=== PATIENT | female | born 1995 | race Caucasian/White ===

== ENCOUNTER 2016-03-03 23:14 | Emergency (ER) | payer BC, OTHER ==
[2016-03-03 23:19] VITALS: BP 107/74; PULSE 87; TEMP 98.1; BMI 22.6
[2016-03-04] MEDS ORDERED: ONDANSETRON 4 MG/2 ML VIAL ONE (00:05)
[2016-03-04 00:13] LABS: BASOPHIL 0.6 % (0-2.0); EOSINOPHIL 2.9 % (0-4.5); MCH 28.9 pg (25.7-33.7); MCHC 33.1 g/dl (32.0-36.0); MEAN CELL VOLUME 87.4 fl (80-96); NEUTROPHILS 54.2 % (42.8-82.8); PLATELET COUNT 253 K/MM3 (134-434); RDW 12.6 % (11.6-15.6); WHITE BLOOD COUNT 9.8 K/mm3 (4.0-10.0)
--- NOTE | 2016-03-04 00:15 | PDOC ---
History of Present Illness - General Chief Complaint: Nausea/Vomiting Stated Complaint: VOMITING/SHAKING Time Seen by Provider: 03/03/16 23:24 History Source: Patient Exam Limitations: No Limitations - History of Present Illness Initial Comments: 03/04/16 00:15 Patient is a 20-year-old female with h/o heroine use c/o feeling shaky, nausea and vomiting that started about 3 hours [employer]. She denies abd pain, no sick contact, no food contact, fever, chills, diarrhea. Sniffed heroine about 1 hour [employer]. PMD: Valintine [facility] Med Prac PMHX; neg PSOCHX: (+) heroine use, neg cig, neg drug PFamHX: noncontributory ALL: NKDA GENERAL/CONSTITUTIONAL: [No fever or chills. No weakness. No weight change.] HEAD, EYES, EARS, NOSE AND THROAT: [No change in vision. No ear pain or discharge. No sore throat.] CARDIOVASCULAR: [No chest pain or shortness of breath.] RESPIRATORY: [No cough, wheezing, or hemoptysis.] GASTROINTESTINAL: (+) nausea, (+) vomiting, diarrhea (-) constipation. No rectal bleeding.] GENITOURINARY: [No dysuria, frequency, or change in urination.] MUSCULOSKELETAL: [No joint or muscle swelling or pain. No neck or back pain.] SKIN AND BREASTS: [No rash or easy bruising.] NEUROLOGIC: [No headache, vertigo, loss of consciousness, or loss of sensation.] PSYCHIATRIC: [No depression or anxiety.] ENDOCRINE: [No increased thirst. No abnormal weight change.] HEMATOLOGIC/LYMPHATIC: [No anemia, easy bleeding, or history of blood clots.] ALLERGIC/IMMUNOLOGIC: [No hives or skin allergy. No latex allergy.] GENERAL: [The patient is awake, alert, and fully oriented, in no acute distress. ] HEAD: [Normal with no signs of trauma.] EYES: [Pupils equal, round and reactive to light, extraocular movements intact, sclera anicteric, conjunctiva clear.] ENT: [Ears normal, nares patent, oropharynx clear without exudates. Moist mucous membranes.] NECK: [Normal range of motion, supple without lymphadenopathy, JVD, or masses.] LUNGS: [Breath sounds equal, clear to auscultation bilaterally. No wheezes, and no crackles.] HEART: [Regular rate and rhythm, normal S1 and S2 without murmur, rub.] ABDOMEN: [Soft, nontender, normoactive bowel sounds. No guarding, no rebound. No masses.] EXTREMITIES: [Normal range of motion, no edema. No clubbing or cyanosis. No cords, erythema, or tenderness.] NEUROLOGICAL: [Cranial nerves II through XII grossly intact. Normal speech, normal gait.] PSYCH: [Normal mood, normal affect.] SKIN: [Warm, Dry, normal turgor, no rashes or lesions noted.] Past History - Past Medical History Allergies/Adverse Reactions: Allergies Allergy/AdvReac Type Severity Reaction Status Date / Time No Known Allergies Allergy Verified 03/03/16 23:18 Home Medications: Ambulatory Orders NK [No Known Home Medication] 06/13/14 Anemia: No Asthma: No Cancer: No Cardiac Disorders: No CVA: No COPD: No CHF: No Dementia: No Diabetes: No GI Disorders: No Disorders: Yes (CHLAMYDIA) HTN: No Hypercholesterolemia: No Liver Disease: No Suicide Attempt (Hx): No Seizures: No Thyroid Disease: No Lung CA: No - Reproductive History (#): 0 - Psycho/Social/Smoking Cessation Hx Anxiety: No Suicidal Ideation: No Smoking History: Never smoked Hx Alcohol Use: No Drug/Substance Use Hx: Yes Substance Use Type: Heroin Hx Substance Use Treatment: No *Physical Exam - Vital Signs Last Vital Signs Temp Pulse Resp BP Pulse Ox 98.1 F 87 18 107/74 99 03/03/16 23:16 03/03/16 23:16 03/03/16 23:16 03/03/16 23:16 03/03/16 23:16 ED Treatment Course - LABORATORY CBC & Chemistry Diagram: 03/04/16 00:05 03/04/16 00:05 Medical Decision Making - Medical Decision Making 03/04/16 01:17 Patient is a 20-year-old female with h/o heroine use c/o feeling shaky, nausea and vomiting that started about 3 hours [employer]. No abnormal findings on labs Patient is tolerating by mouth 03/04/16 02:42 I discussed the physical exam findings, ancillary test results and final diagnoses with the patient. I answered all of the patient's questions. The patient was satisfied with the care received and felt comfortable with the discharge plan and treatment plan. The Patient agrees to follow up with the primary care physician within 24-72 hours. *DC/Admit/Observation/Transfer Diagnosis at time of Disposition: Nausea and vomiting Qualifiers: Vomiting Intractability: unspecified - Discharge Dispostion Disposition: HOME Condition at time of disposition: Stable - Patient Instructions Printed Discharge Instructions: DI for Vomiting -- Adult Additional Instructions: Your Discharge Instructions: You must call primary care physician within 24 hours to arrange follow-up. Return to the Emergency Department with any new, persistent or worsening symptoms, for fever, chills, SOB, dizziness or any other concerning changes that may occur.
[2016-03-04 00:39] LABS: ALBUMIN 4.3 g/dl (3.4-5.0); ANION GAP 9 (8-16); BILIRUBIN,TOTAL 0.4 mg/dL (0.2-1.0); CO2 31 mmol/L (21-32); CREATININE 0.7 mg/dL (0.55-1.02); GLUCOSE,RANDOM 109 mg/dL (74-106); SGOT/AST 11 U/L (15-37); SGPT/ALT 15 U/L (12-78); TOT PROT 7.5 g/dl (6.4-8.2)
[2016-03-04 00:40] LABS: ALK PHOS 67 U/L (45-117)
[2016-03-04 01:14] LABS: URINE APPEARANCE SLCLOUDY; URINE BILIRUBIN NEGATIVE (NEGATIVE); URINE BLOOD NEGATIVE (NEGATIVE); URINE COLOR DKYELLOW; URINE GLUCOSE (UA) NEGATIVE (NEGATIVE); URINE KETONE TRACE (NEGATIVE); URINE NITRITE NEGATIVE (NEGATIVE); URINE PROTEIN NEGATIVE (NEGATIVE); URINE UROBILINOGEN NEGATIVE E.U./dl (0.2-1.0)
[2016-03-04 01:19] LABS: URINE LEUK ESTERASE 2+ (NEGATIVE)
== END 2016-03-04 02:48 | disposition home or self-care (01) ==
LOC: JER 23:14
DX: R11.2 Nausea with vomiting, unspecified (principal)
CPT/HCPCS: 36415; 80053; 81003; 81015; 84703; 85025; 87804; 99282-25

== ENCOUNTER 2017-03-26 21:29 | Emergency (ER) | payer OTHER ==
[2017-03-26 22:17] VITALS: BP 119/82; BMI 22.4
--- NOTE | 2017-03-26 23:27 | PDOC ---
History of Present Illness - General Chief Complaint: Cold Symptoms Stated Complaint: FEVER Time Seen by Provider: 03/26/17 23:24 History Source: Patient - History of Present Illness Initial Comments: 03/27/17 01:29 21 year old female with right flank pain and fever since this morning. denies urinary symptoms. patient reports pain worse to rh flank area with deep breaths. denies N, VD, abdominal pain , urinary symptoms. denies URI symptoms Past History - Past Medical History Allergies/Adverse Reactions: Allergies Allergy/AdvReac Type Severity Reaction Status Date / Time No Known Allergies Allergy Verified 03/26/17 22:05 Home Medications: Ambulatory Orders Sulfamethoxazole/Trimethoprim [Bactrim Ds Tablet] 1 each PO BID #14 tablet 03/27 Anemia: No Asthma: No Cancer: No Cardiac Disorders: No CVA: No COPD: No CHF: No Dementia: No Diabetes: No GI Disorders: No Disorders: Yes (CHLAMYDIA) HTN: No Hypercholesterolemia: No Liver Disease: No Seizures: No Thyroid Disease: No Lung CA: No - Reproductive History (#): 0 - Suicide/Smoking/Psychosocial Hx Smoking History: Never smoked Have you smoked in the past 12 months: No Information on smoking cessation initiated: No Hx Alcohol Use: No Drug/Substance Use Hx: Yes (Heroine) Substance Use Type: Cocaine, Heroin Hx Substance Use Treatment: No Review of Systems - Review of Systems Able to Perform ROS?: Yes Is the patient limited Setswana proficient: No *Physical Exam - Vital Signs Last Vital Signs Temp Pulse Resp BP Pulse Ox 102.9 F H 122 H 20 119/82 99 03/26/17 22:06 03/26/17 22:06 03/26/17 22:06 03/26/17 22:06 03/26/17 22:06 - Physical Exam General Appearance: Yes: Appropriately Dressed Gastrointestinal/Abdominal: positive: Normal Bowel Sounds, Soft. negative: Tender, Flat, Organomegaly, Pulsatile Mass, Increased Bowel Sounds, Decreased BS , Protuberent, Distended, Guarding, Rebound, Tenderness, Hernia, Mass, Hepatomegaly, Spleenomegaly, Other Musculoskeletal: positive: CVA Tenderness, CVA Tenderness (R). negative: CVA Tenderness (L) Extremity: positive: Normal Inspection, Normal Range of Motion Integumentary: positive: Normal Color, Dry *DC/Admit/Observation/Transfer Diagnosis at time of Disposition: Pyelonephritis - Discharge Dispostion Disposition: HOME - Prescriptions Prescriptions: Sulfamethoxazole/Trimethoprim [Bactrim Ds Tablet] 1 each PO BID #14 tablet - Referrals Referrals: Yvette Ponce MD [Primary Care Provider] - Call tomorrow - Patient Instructions Printed Discharge Instructions: DI for Kidney Infection Additional Instructions: drink plenty of fluids take bactrim as ordered. follow up with your doctor as soon as possible return to the ER if symptoms worsen. - Post Discharge Activity Forms/Work/School Notes: Parent(s) Back to Work Note
[2017-03-26] MEDS ORDERED: ACETAMINOPHEN 325 MG TABLET (FP) PO ONE (23:34)
[2017-03-27] MEDS ORDERED: IBUPROFEN 600 MG TABLET (FP) PO ONE ×2 (00:12→00:53)
[2017-03-27 00:23] LABS: URINE APPEARANCE CLOUDY; URINE BILIRUBIN NEGATIVE (NEGATIVE); URINE BLOOD 2+ (NEGATIVE); URINE COLOR YELLOW; URINE GLUCOSE (UA) NEGATIVE (NEGATIVE); URINE KETONE NEGATIVE (NEGATIVE); URINE NITRITE POSITIVE (NEGATIVE); URINE PROTEIN NEGATIVE (NEGATIVE); URINE UROBILINOGEN NEGATIVE mg/dL (0.2-1.0)
[2017-03-27 00:25] LABS: HCG,QUALITATIVE URINE NEGATIVE
[2017-03-27 00:32] LABS: URINE LEUK ESTERASE 1+ (NEGATIVE)
[2017-03-27 00:36] LABS: EPI CELLS MANY /HPF (FEW); URINE BACTERIA RARE /hpf (NONE SEEN); URINE HYALINE CAST 3 /lpf; URINE MUCUS RARE
--- NOTE | 2017-03-27 01:05 | PDOC ---
*Physical Exam - Vital Signs Last Vital Signs Temp Pulse Resp BP Pulse Ox 102.9 F H 122 H 20 119/82 99 03/26/17 22:06 03/26/17 22:06 03/26/17 22:06 03/26/17 22:06 03/26/17 22:06 ED Treatment Course - ADDITIONAL ORDERS Additional order review: Laboratory Results 03/27/17 00:16 Urine Color Yellow Urine Appearance Cloudy Urine pH 7.0 D Ur Specific [place] 1.009 Urine Protein Negative Urine Glucose (UA) Negative Urine Ketones Negative Urine Blood 2+ H Urine Nitrite Positive Urine Bilirubin Negative Urine Urobilinogen Negative Ur Leukocyte Esterase 1+ H Urine WBC (Auto) 17 Urine RBC (Auto) 24 Ur Epithelial Cells Many Urine Bacteria Rare Hyaline Casts 3 Urine Mucus Rare Urine HCG, Qual Negative 03/26/17 23:58 Influenza Types A,B Antigen (CADE) - Final Nasopharyngeal Swab - Final - Medications Given in the ED: ED Medications Discontinued Medications Generic Name Dose Route Start Last Admin Trade Name Freq PRN Reason Stop Dose Admin Acetaminophen 650 mg 03/26/17 23:34 03/27/17 00:59 Tylenol - PO 03/26/17 23:35 Not Given ONCE ONE Ibuprofen 600 mg 03/27/17 00:12 03/27/17 00:59 Motrin - PO 03/27/17 00:13 600 mg ONCE ONE Administration Medical Decision Making - Medical Decision Making 03/27/17 01:05 agree with care from NEVAEH Sterling *DC/Admit/Observation/Transfer Diagnosis at time of Disposition: Pyelonephritis - Discharge Dispostion Disposition: HOME - Prescriptions Prescriptions: Sulfamethoxazole/Trimethoprim [Bactrim Ds Tablet] 1 each PO BID #14 tablet - Referrals Referrals: Yvette Ponce MD [Primary Care Provider] - Call tomorrow - Patient Instructions Printed Discharge Instructions: DI for Kidney Infection Additional Instructions: drink plenty of fluids take bactrim as ordered. follow up with your doctor as soon as possible return to the ER if symptoms worsen. - Post Discharge Activity Forms/Work/School Notes: Parent(s) Back to Work Note
[2017-03-27] MEDS ORDERED: cefTRIAXone SODIUM 1 GM VIAL ONE (02:03)
[2017-03-27 02:40] VITALS: PULSE 91; TEMP 98.2
== END 2017-03-27 02:50 | disposition home or self-care (01) ==
LOC: JERFT 21:29 → JER 21:29
DX: N12 Tubulo-interstitial nephritis, not specified as acute or chronic (principal)
CPT/HCPCS: 71046-TC-FY; 81003; 81015; 84703; 87804; 99282-25

== ENCOUNTER 2021-02-24 03:12 | Emergency (ER) | payer OTHER ==
[2021-02-24] MEDS ORDERED: ACETAMINOPHEN 1000 MG/100 ML BAG IVPB ONE (04:06)
[2021-02-24 04:07] VITALS: BMI 28.3
[2021-02-24] MEDS ORDERED: ACETAMINOPHEN INJECTION 100 ML IVPB ONE (04:12)
[2021-02-24 04:17] LABS: BASO % 0.6 % (0-2.0); EOS % 3.9 % (0-4.5); HEMATOCRIT 40.5 % (32.4-45.2); LYMPH % 40.8 % (8-40); MCH 30.6 pg (25.7-33.7); MCHC 34.5 g/dl (32.0-36.0); MEAN CELL VOLUME 88.9 fl (80-96); MEAN PLT VOLUME 9.9 fl (7.5-11.1); MONO % 8.1 % (3.8-10.2); NEUT % 46.6 % (42.8-82.8); PLATELET COUNT 210 10^3/uL (134-434); RBC 4.56 M/mm3 (3.60-5.2); RDW 13.5 % (11.6-15.6); WHITE BLOOD COUNT 8.3 K/mm3 (4.0-10.0)
[2021-02-24 04:25] LABS: INR 1.02 (0.83-1.09); PROTHROMBIN TIME (PATIENT) 11.7 SEC (9.7-13.0)
[2021-02-24 04:28] LABS: ACTIVATED PTT 36.6 SECONDS (25.2-36.5)
[2021-02-24 04:43] LABS: CALCIUM 8.8 mg/dL (8.5-10.1)
[2021-02-24 04:44] LABS: ALBUMIN 3.6 g/dl (3.4-5.0); BLOOD UREA NITROGEN 6.5 mg/dL (7-18)
[2021-02-24 04:47] LABS: CREATININE 0.6 mg/dL (0.55-1.3)
[2021-02-24 04:48] LABS: BILIRUBIN,TOTAL 0.3 mg/dL (0.2-1); TOT PROT 7.1 g/dl (6.4-8.2)
[2021-02-24] MEDS ORDERED: morphine CARPU-JECT 2 MG/1 ML DISP.SYRIN IVPUSH ONE (07:48)
[2021-02-24 08:36] VITALS: BP 103/64; PULSE 74; TEMP 98.5
[2021-02-24] MEDS ORDERED: KETOROLAC TROMETHAMINE 15 MG/ML VIAL IVPUSH ONE (08:59)
[2021-02-24] MEDS ORDERED: KETOROLAC TROMETHAMINE 15 MG/ML VIAL ONE (10:20)
== END 2021-02-24 10:20 | disposition home or self-care (01) ==
LOC: JER 03:12
PROC: 3E0333Z Introduction of Anti-inflammatory into Peripheral Vein, Percutaneous Approach (ICD-10-PCS; principal; 2021-02-24)
PROC: 3E03329 Introduction of Other Anti-infective into Peripheral Vein, Percutaneous Approach (ICD-10-PCS; 2021-02-24)
PROC: 3E03329 Introduction of Other Anti-infective into Peripheral Vein, Percutaneous Approach (ICD-10-PCS; 2021-02-24)
PROC: 3E033NZ Introduction of Analgesics, Hypnotics, Sedatives into Peripheral Vein, Percutaneous Approach (ICD-10-PCS; 2021-02-24)
PROC: 3E033NZ Introduction of Analgesics, Hypnotics, Sedatives into Peripheral Vein, Percutaneous Approach (ICD-10-PCS; 2021-02-24)
PROC: 3E033NZ Introduction of Analgesics, Hypnotics, Sedatives into Peripheral Vein, Percutaneous Approach (ICD-10-PCS; 2021-02-24)
PROC: 3E0337Z Introduction of Electrolytic and Water Balance Substance into Peripheral Vein, Percutaneous Approach (ICD-10-PCS; 2021-02-24)
PROC: 3E0337Z Introduction of Electrolytic and Water Balance Substance into Peripheral Vein, Percutaneous Approach (ICD-10-PCS; 2021-02-24)
PROC: 3E0337Z Introduction of Electrolytic and Water Balance Substance into Peripheral Vein, Percutaneous Approach (ICD-10-PCS; 2021-02-24)
PROC: 3E0337Z Introduction of Electrolytic and Water Balance Substance into Peripheral Vein, Percutaneous Approach (ICD-10-PCS; 2021-02-24)
DX: O20.0 Threatened abortion (principal)
CPT/HCPCS: 36415; 76830-TC; 80053; 84702; 85025; 85610; 85730; 86850; 86900; 86901; 99284-25